=== PATIENT | male | born 1980 | race Caucasian/White ===

== ENCOUNTER 2019-05-25 07:18 | Emergency (ER) | payer OTHER ==
[~2019-05-25] VITALS: Ht 175.3 cm; Wt 120.2 kg
[2019-05-25] MEDS ORDERED: AUGMENTIN 875-1 EACH PO (07:59)
== END 2019-05-25 08:11 | disposition home or self-care (01) ==
LOC: ED 07:18
DX: S61.452A Open bite of left hand, initial encounter (principal); S61.451A Open bite of right hand, initial encounter; W55.01XA Bitten by cat, initial encounter
CPT/HCPCS: 99283